=== PATIENT | female | born 1990 | race Caucasian/White ===

== ENCOUNTER 2019-08-21 11:32 | Emergency (ER) | payer MEDICAID, SELFPAY ==
[2019-08-21 11:32] VITALS: BP 107/66; PULSE 101; RESP 18; TEMP 36.6; O2SAT 100; BMI 22.6
--- NOTE | 2019-08-21 12:03 | ED.VIS.GEN ---
History of Present Illness Chief Complaint: Abscess Informant: Patient Narrative: Patient is a 29-year-old female who presents to the emergency department for abscess of the right upper extremity. This started approximately 1 week ago. She has never had these abscesses before in the past. She denies knowing any history of MRSA. She does have a history of IV drug abuse but she states that she has been clean over the past 3 months. She denies any fevers or chills. She has been feeling slightly nauseous but no episodes of vomiting. The swelling has been progressively getting larger. She has not tried anything for it. No loss of sensation in the hand or muscle weakness. She denies any chest pain or shortness of breath. No abdominal pain or back pain. No other new lesions that she has noticed. Past Medical History - Allergies and Home Meds Allergies/Adverse Reactions: Allergies No Known Allergies Allergy (Verified 08/21/19 11:36) Primary Care Physician: Jackeline Saul DO [Primary Care Provider] - 2 Days for wound check Prior records reviewed: Yes Past Medical History: - - Previous history of substance abuse, anxiety Smoking Status: Current every day smoker Alcohol: None Drugs: - - Currently denies, has been clean for 3 months. Review of Systems All systems negative except as indicated General: Denies: Chills, Fever, Sweats Eyes: Denies: Visual changes - bilaterally, Diplopia ENT: Denies: Rhinorrhea, Sore throat Cardiovascular: Denies: Chest pain, Palpitations Respiratory: Denies: Dyspnea, Cough, Dyspnea on exertion Gastrointestinal: Reports: Nausea. Denies: Abdominal pain, Vomiting, Diarrhea Musculoskeletal: Denies: Back pain, Extremity Pain Skin: Reports: Abscess. Denies: Rash, Wounds Neurological: Denies: Headache, Weakness, Numbness Physical Exam Vital Signs/Narrative: Vital Signs Temp Pulse Resp BP Pulse Ox 08/21/19 11:32 98 F 101 H 18 107/66 100 Inital Vital Signs reviewed: Yes General: Well nourished, Well developed, No Acute Distress Head: Normocephalic, Atraumatic Eyes: Perrl, EOMI ENT: Moist mucous membranes, No rhinorrhea Neck: Supple, Nontender Cardiovascular: Regular rate, Regular rhythm, No murmurs Respiratory: No distress, CTA bilaterally, Chest nontender Abdomen: Soft, Nontender, Nondistended, Normal bowel sounds Back: Nontender, Normal Inspection Extremities: Nontender, No edema Skin: Normal color, No rash, - - Abscess with swelling, erythema, tenderness and warmth just distal to right armpit. Otherwise neurovascularly intact distal. Neurological: Alert, Oriented x3, Cranial nerves II-XII grossly intact, Normal Strength, Normal Sensation Psychological: Normal affect, Normal Mood Diagnostic/Tx/Re-eval - Medical Decision Making Patient presents to the emerge department for abscess of the right underarm. She denies any systemic symptoms besides mild nausea. Upon arrival she is mildly tachycardic but otherwise no fever. She is nontoxic-appearing. No concern for NSTI at this time. After I&D the wound was dressed with gauze. Will place on antibiotics. She needs follow-up with her PCP for wound follow-up. If she develops any worsening swelling around the arm or develops any systemic symptoms she is to return to the emergency department. She understands and is agreeable this plan. Will discharge home in stable condition. Procedures Procedure(s): Procedure name: Abscess incision and drainage. Informed consent was obtained before procedure started. The appropriate timeout was taken. The area was prepped and draped in the usual sterile fashion. Area surrounding the abscess was cleaned with alcohol. The area was anesthetized using 5 cc 1% lidocaine with epinephrine. Using an 11 blade a small incision was made. A moderate amount of purulent drainage was obtained. Wound dressed. Patient tolerated the procedure well without any apparent complications. ED Disposition - Plan for ED Patient: Disposition: Home or Assisted Living Diagnosis: Abscess of arm, right Instructions: ED Abscess Incision And Drainage Prescriptions: Smz/Tmp Ds [Bactrim Ds] 2 tab PO BID 7 Days #28 tab Prescription Printed Cephalexin [Keflex] 500 mg PO TID 7 Days #21 cap Prescription Printed Referrals: Jackeline Saul DO [Primary Care Provider] - 2 Days for wound check
== END 2019-08-21 13:02 | disposition home or self-care (01) ==
PROVIDERS: Emergency Provider Emergency Medicine; PCP Family Medicine
DX: L02.413 Cutaneous abscess of right upper limb (principal); F41.9 Anxiety disorder, unspecified; F17.200 Nicotine dependence, unspecified, uncomplicated
CPT/HCPCS: 10060; 99282

== ENCOUNTER 2019-11-07 19:02 | Emergency (ER) | payer MEDICAID, SELFPAY ==
[2019-11-07 19:03] VITALS: BP 162/50; PULSE 85; RESP 16; TEMP 36.1; O2SAT 93; BMI 20.9
--- NOTE | 2019-11-07 20:04 | RAD_ITS ---
STUDY: X-RAY - LEFT HAND REASON FOR EXAM: Female, 29 years old. IV drug user, swollen near base of thumb and turning yellow. TECHNIQUE: 3 view(s) of the hand. COMPARISON: None. FINDINGS: Normal radiocarpal articulation. Normal distal radioulnar joint. Normal visualized carpal bones. Normal carpal articulations Normal carpometacarpal articulation of the thumb. Normal second through fifth carpometacarpal joints. Normal metacarpi. Normal metacarpophalangeal joint of the thumb. Normal interphalangeal joint of the thumb. Normal proximal and distal phalanges of the thumb. Normal metacarpophalangeal joints of the second through fifth fingers. Normal proximal and distal interphalangeal joints of the second through fifth fingers. Normal phalanges of the second through fifth fingers. There is soft tissue swelling adjacent to the first metacarpal. No foreign body is visualized. RAD/Hand Min 3 Views IMPRESSION: No foreign body identified. No acute osseous injury. Soft tissue swelling at the base of the thumb. Electronically Signed: Evelyn Baker MD at 21:54 EDT Tel , Service support ,
--- NOTE | 2019-11-07 20:25 | ED.DCSUM_ITS ---
History of Present Illness Chief Complaint: General Illness Informant: Patient Onset: Weeks - 1 Narrative: Surgical abscess left hand for the past week. States IV drug user restarted a few months ago. No fevers. No chills or sweats. No drainage. Denies any allergies. History of hepatitis C, states was told by several other eyes were little more yellow. No recent vomiting or diarrhea. No sick contacts. Denies abdominal pain. Prior similar symptoms: Yes Past Medical History - Allergies and Home Meds Allergies/Adverse Reactions: Allergies No Known Allergies Allergy (Verified 11/07/19 19:05) Primary Care Physician: Jackeline Saul DO [Primary Care Provider] - Past Medical History: - - Hepatitis C, IV drug abuse Smoking Status: Current every day smoker Review of Systems General: Denies: Chills, Fever, Sweats Eyes: Denies: Visual changes - bilaterally, Diplopia ENT: Denies: Rhinorrhea, Sore throat Cardiovascular: Denies: Chest pain, Palpitations Respiratory: Denies: Dyspnea, Cough, Dyspnea on exertion Gastrointestinal: Denies: Abdominal pain, Nausea, Vomiting, Diarrhea, Melena, Hematochezia Genitourinary: Denies: Dysuria, Hematuria, Frequency Musculoskeletal: Denies: Back pain, Extremity Pain Skin: Reports: Abscess. Denies: Rash, Wounds Neurological: Denies: Headache, Weakness, Numbness Physical Exam Vital Signs/Narrative: Vital Signs Temp Pulse Resp BP Pulse Ox 11/07/19 19:03 97.0 F L 85 16 162/50 H 93 Inital Vital Signs reviewed: Yes General: Well nourished, Well developed, No Acute Distress Head: Normocephalic, Atraumatic Eyes: Perrl, EOMI, Scleral icterus ENT: Moist mucous membranes, No rhinorrhea Neck: Supple, Nontender Cardiovascular: Regular rate, Regular rhythm, No murmurs Respiratory: No distress, CTA bilaterally, Chest nontender Abdomen: Soft, Nontender, Nondistended, Normal bowel sounds Back: Nontender, Normal Inspection Extremities: Nontender, No edema Skin: - - Left hand dorsal aspect, 2 and half centimeter area of erythema induration with a small wound with no active drainage there is no streaking. Mild tender to palpation. This in the region between the first web space. Neurological: Alert, Oriented x3, Cranial nerves II-XII grossly intact, Normal Strength, Normal Sensation Psychological: Normal affect, Normal Mood Diagnostic/Tx/Re-eval Clinical Impression(s) from Imaging Studies Hand X-Ray 11/07/19 20:04 IMPRESSION: No foreign body identified. No acute osseous injury. Soft tissue swelling at the base of the thumb. Electronically Signed: Evelyn Baker MD at 21:54 EDT Tel , Service support , Abnormal Lab Results 11/07/19 21:05 Total Bilirubin 5.20 H Direct Bilirubin 4.35 H AST 722 H ALT 1127 H Alkaline Phosphatase 444 H Total Protein 8.3 H Albumin 3.2 Globulin 5.1 H - Medical Decision Making Patient nontoxic, she declines attempt for incision and drainage. X-ray of hand obtained shows no radiopaque foreign bodies. Erythema was outlined, started on Keflex and Bactrim. With her scleral icterus history of hep C liver enzymes obtained which was elevated. He has no vomiting diarrhea or any abdominal pain. Likely hepatitis flare. She will follow-up with her PCP that follows her with this. She also states she has a rehab scheduled for tomorrow for her use. Discharge with outpatient follow-up, signs and symptom discussed return. All questions were answered. ED Disposition - Plan for ED Patient: Disposition: Home or Assisted Living Diagnosis: Hepatitis, Hx of hepatitis C, Abscess of hand excluding fingers and thumb Instructions: ED Abscess Antibiotic Treatment Only Prescriptions: Smz/Tmp Ds [Bactrim Ds] 1 tab PO BID #20 tab Transmission Status: Pending to [email or web address] Cephalexin [Keflex] 500 mg PO Q6 #40 cap Transmission Status: Pending to [email or web address] Referrals: Jackeline Saul DO [Primary Care Provider] - 3-5 Days
[2019-11-07] MEDS: Smz/Tmp Ds Tablet 1 TABLET PO (20:46)
[2019-11-07] MEDS: Cephalexin 250 MG Capsule 500 MG PO (20:46)
[2019-11-07 21:38] LABS: AST(SGOT) 722 U/L (15-37); Alanine Aminotransfer ALT/SGPT 1127 U/L (13-56); Albumin, Serum 3.2 g/dL (3.2-5.0); Alkaline Phosphatase 444 U/L (45-117); Bilirubin, Direct 4.35 mg/dL (0.00-0.30); Globulin 5.1 g/dL (2.2-4.2); Protein, Total 8.3 g/dL (6.4-8.2)
[2019-11-07 22:04] VITALS: RESP 16
== END 2019-11-07 22:20 | disposition home or self-care (01) ==
PROVIDERS: Emergency Provider Emergency Medicine; PCP Family Medicine
DX: K75.9 Inflammatory liver disease, unspecified (principal); L02.512 Cutaneous abscess of left hand; F17.200 Nicotine dependence, unspecified, uncomplicated; Z86.19 Personal history of other infectious and parasitic diseases
CPT/HCPCS: 73130; 80076; 99282

== ENCOUNTER 2021-12-26 12:44 | Outpatient (REF) | payer SELFPAY ==
[2021-12-26 12:45] VITALS: BP 115/71; PULSE 106; RESP 15; TEMP 36.6; O2SAT 95; BMI 23.8
--- NOTE | 2021-12-26 12:58 | EX.ED.DYSGE1 ---
HPI History of Present Illness Chief Complaint: Overdose Informant: patient and EMS Narrative Narrative: Presents by EMS from shelter. Currently inmate there for 2 days. Present obtain powder fentanyl for which she took. Other inmates are also here being evaluated for overdose. She has history of substance abuse. She is status post 1 mg of intranasal Narcan by EMS. Unclear of any was given at the shelter. Currently states she is nauseated. Patient has overdosed years ago. Prior similar symptoms: Yes PFSH PFSH Medical History (Updated 12/26/21 @ 14:[address] Deep Martino DO) Drug abuse Home Medications buprenorphine 8 mg-naloxone 2 mg sublingual film 1.5 ea SL DAILY 08/21/19 [History Last Taken Unknown] escitalopram oxalate 20 mg tablet 30 mg PO DAILY 08/21/19 [History Last Taken Unknown] trazodone 100 mg tablet 100 mg PO QHS 08/21/19 [History Last Taken Unknown] cephalexin 500 mg capsule 500 mg PO Q6 #40 caps 11/07/19 [Rx Last Taken Unknown] sulfamethoxazole 800 mg-trimethoprim 160 mg tablet 1 tab PO BID #20 tabs 11/07/19 [Rx Last Taken Unknown] Allergy/AdvReac Type Severity Reaction Status Date / Time No Known Allergies Allergy Verified 12/26/21 12:46 Surgical History no surgical history Social History Smoking Status: Current every day smoker tobacco type: cigarettes ROS ROS ED Constitutional Constitutional ED: Denies chills, fever(s) or sweats Eyes Eyes: Denies change in vision ENT ENT ED: Denies dysphagia or sore throat Cardiovascular Cardiovascular: Denies chest pain, leg edema, palpitations or racing heartbeat Respiratory/Chest Respiratory/Chest: Denies cough, dyspnea or dyspnea on exertion Gastrointestinal Gastrointestinal: Reports nausea; Denies abdominal pain, diarrhea or vomiting Genitourinary Genitourinary ED: Denies dysuria, hematuria or urinary frequency Musculoskeletal Musculoskeletal: Denies back pain, extremity pain or neck pain Integumentary Denies rash or wounds Neurologic Neurologic: Denies headache(s), paresthesias or weakness EXAM Physical Exam Const Vital Signs: 12/26/21 12:45 12/26/21 13:04 Temperature 97.8 F Temperature Source Temporal Pulse Rate 106 H Respiratory Rate 15 Blood Pressure 115/71 Blood Pressure Mean 85 Pulse Ox 95 Oxygen Delivery Method Room Air Room Air Positive well nourished and well developed General Appearance ED: well developed and NAD HEENT Reports moist mucous membranes normocephalic and atraumatic Eyes PERRL, EOMs intact bilaterally and conjunctivae normal Eyes Narrative: No current pinpoint pupils. General Eye ED: Yes normal appearance of both eyes Neck no lymphadenopathy and supple General: Negative for tenderness Chest Wall Chest: Negative for tenderness Resp normal respiratory effort and normal air movement Effort and Inspection: symmetric chest movement; Negative for respiratory distress Cardio regular rate, regular rhythm and no murmurs Peripheral Pulses: pulses 2+ throughout GI normal to inspection, nondistended, normoactive bowel sounds and non-tender Palpation: Negative for guarding or rebound tenderness present Back/Spine no CVA tenderness and no thoracic nor lumbar tenderness Extremity normal to inspection General Extremety ED: Negative for edema or tenderness General Extremity: Negative for edema Neuro oriented x3 and no sensory deficits noted Sensorium / Orientation: awake and alert Skin no rashes or lesions noted and no wounds MDM MDM MDM Narrative Medical decision making narrative: Patient nontoxic, alert and oriented to 3. currently nauseated. She admitted to fentanyl use. She is given oral Zofran she will be observed. Remained stable here tolerate oral fluids. She is discharged in police custody. Discharge Plan Admission Attending Provider: Deep Martino Primary Care Provider: Jackeline Saul Instructions Patient Instructions: ED Overdose, Opiate Discharge Orders/Prescriptions Prescriptions: No Action trazodone 100 MG tablet 100 mg PO QHS escitalopram oxalate 20 MG tablet 30 mg PO DAILY buprenorphine-naloxone 1 EACH film 1.5 ea SL DAILY sulfamethoxazole-trimethoprim 1 TABLET tablet 1 tab PO BID Qty: 20 0RF cephalexin 500 MG capsule 500 mg PO Q6 Qty: 40 0RF Referrals / Follow Up: Jackeline Saul DO [Primary Care Provider] - 1 Week Disposition Disposition (needs filled in before D/C Order can be placed): Home, Self Care
[2021-12-26] MEDS: Ondansetron ODT 4 MG Tablet PO (14:06)
== END 2021-12-26 14:45 ==
LOC: ED 12:44
PROVIDERS: PCP Family Medicine; Visit Provider Emergency Medicine
DX: T40.411A Poisoning by fentanyl or fentanyl analogs, accidental (unintentional), initial encounter (principal); F17.210 Nicotine dependence, cigarettes, uncomplicated; R11.0 Nausea

== ENCOUNTER 2023-01-16 14:37 | Observation (INO) | payer MEDICAID, SELFPAY ==
[2023-01-16 14:37] VITALS: BP 113/73; PULSE 83; RESP 18; TEMP 35.7; O2SAT 100; BMI 27.5
[2023-01-16 15:20] LABS: Amphetamine Urine VISTA POSITIVE (<1000 ng/mL); Barbiturate Urine VISTA NEGATIVE (< 200 ng/mL); Benzodiazepine Urine VISTA NEGATIVE (< 200 ng/mL); Cocaine Urine VISTA POSITIVE (< 300 ng/mL); Ecstacy Urine VISTA POSITIVE (< 500 ng/mL); Methadone Urine VISTA NEGATIVE (< 300 ng/mL); PCP Urine VISTA NEGATIVE (< 25 ng/mL); THC Urine VISTA NEGATIVE (< 50 ng/mL); Vista UDS pH Range 5
[2023-01-16 15:59] LABS: Absolute Lymphocyte Count 1.97 X10^3/uL (0.83-4.51); Absolute Neutrophil Count 6.7 X10^3/uL (2.0-7.7); Basophil# 0.05 X10^3/uL; Basophil% 0.5 % (0-1); Eosinophils% 3.1 % (0-5); Hematocrit 37.7 % (37-47); Hemoglobin 12.6 g/dL (12.0-15.0); Lymphocyte # 1.97 X10^3/ul (0.83-4.51); Lymphocyte % 20.6 % (19-41); Mean Corp Hgb Conc 33.4 g/dL (32-36); Mean Corpuscular Hgb 28.8 pg (27.0-32.0); Mean Corpuscular Volume 86.1 fL (81-99); Mean Platelet Vol. 10.4 fl (6.2-12.0); Monocyte# 0.51 X10^3/uL; Monocyte% 5.3 % (0-10); NRBC Flagged by Analyzer 0 % (0-5); Neutrophil # 6.67 X10^3/uL (2.7-7.7); Neutrophil % 70.1 % (47-70); Platelet Count 333 K/mm3 (150-450); RBC Distribution Width CV 12.3 % (11.6-14.6); RBC Distribution Width SD 38.5 fl (35.1-43.9); Red Blood Count 4.38 M/mm3 (4.2-5.4); White Blood Count 9.5 K/mm3 (4.4-11.0)
--- NOTE | 2023-01-16 16:02 | EDS_ITS ---
HPI History of Present Illness Chief Complaint: Substance Abuse Informant: patient Narrative Narrative: 32year-old female presenting to the emergency room requesting detox services. Patient states that she has mostly been using methamphetamines but yesterday smoked fentanyl. She states that she does not normally use fentanyl. She went to [facility] and because she tested positive for fentanyl they sent her to the emergency to get detox in the hospital. Patient states that she has had an off on again off again relationship with drugs including methamphetamines. She does not feel like she is going to have any withdrawal symptoms. She did a . She states she has not done any IV drugs for years. [facility] Medical History Drug abuse Home Medications buprenorphine 8 mg-naloxone 2 mg sublingual film 1.5 ea SL DAILY 08/21/19 [History Last Taken Unknown] escitalopram oxalate 20 mg tablet 30 mg PO DAILY 08/21/19 [History Last Taken Unknown] trazodone 100 mg tablet 100 mg PO QHS 08/21/19 [History Last Taken Unknown] cephalexin 500 mg capsule 500 mg PO Q6 #40 caps 11/07/19 [Rx Last Taken Unknown] sulfamethoxazole 800 mg-trimethoprim 160 mg tablet 1 tab PO BID #20 tabs 11/07/19 [Rx Last Taken Unknown] Allergy/AdvReac Type Severity Reaction Status Date / Time No Known Allergies Allergy Verified 01/16/23 14:37 Social History (Updated 01/16/23 @ 16:[address] Aric Yen DO) Smoking Status: Current every day smoker tobacco type: cigarettes substance use type: amphetamines, opiates and methamphetamine ROS ROS ED Constitutional Constitutional ED: Denies chills, fever(s) or weight loss Eyes Eyes: Denies change in vision or diplopia ENT ENT ED: Denies ear pain, rhinorrhea or sore throat Cardiovascular Cardiovascular: Denies chest pain, orthopnea, palpitations or racing heartbeat Respiratory/Chest Respiratory/Chest: Denies cough, dyspnea or orthopnea Gastrointestinal Gastrointestinal: Denies abdominal pain, diarrhea, nausea or vomiting Genitourinary Genitourinary ED: Denies dysuria, hematuria or urinary frequency Musculoskeletal Musculoskeletal: Denies arthralgias or myalgias Integumentary Denies abscess or rash Neurologic Neurologic: Denies headache(s) or weakness Psychiatric Psychiatric: Denies anxiety, depression, suicidal ideation or suicidal thoughts Endocrine Endocrinology: Denies polydipsia, polyphagia or polyuria Allergic/Immunologic Allergic/Immunologic ED: Denies mouth swelling, tongue swelling or urticaria EXAM Physical Exam Const Vital Signs: 01/16/23 14:37 Temperature 96.3 F L Temperature Source Temporal Pulse Rate 83 Respiratory Rate 18 Blood Pressure 113/73 Blood Pressure Mean 86 Pulse Ox 100 Oxygen Delivery Method Room Air Positive well nourished and well developed General Appearance ED: well developed HEENT Reports normocephalic, head/scalp atraumatic and moist mucous membranes Eyes PERRL and EOMs intact bilaterally Neck no lymphadenopathy, supple and no JVD Resp normal respiratory effort and clear to auscultation bilaterally Cardio regular rate, regular rhythm and no murmurs GI normal to inspection, nondistended, normoactive bowel sounds and non-tender Palpation: soft Back/Spine no CVA tenderness and normal ROM Extremity normal to inspection General Extremety ED: Negative for edema General Extremity: Negative for edema Neuro oriented x3 and CN's II-XII intact bilaterally Sensorium / Orientation: alert Motor Exam: strength 5/5 throughout Psych mental status grossly normal Mood & Affect: Negative for depressed or tearful Skin no rashes or lesions noted and no wounds MDM MDM MDM Narrative Medical decision making narrative: Urine toxicology positive for amphetamines cocaine and MDMA. White count 9.5 hemoglobin 12.6. History & Record Review Discussion w/independent historian: Patient Lab Data Attestation: I reviewed the patient's lab results. Labs: Laboratory Results - last 24 hr 01/16/23 01/16/23 15:02 15:34 WBC 9.5 RBC 4.38 Hgb 12.6 Hct 37.7 MCV 86.1 MCH 28.8 MCHC 33.4 RDW Std Deviation 38.5 RDW Coeff of Rachel 12.3 Plt Count 333 MPV 10.4 Immature Gran % (Auto) 0.400 Neut % (Auto) 70.1 H Lymph % (Auto) 20.6 [place] % (Auto) 5.3 Eos % (Auto) 3.1 Baso % (Auto) 0.5 Absolute Neuts (auto) 6.7 Absolute Lymphs (auto) 1.97 Nucleated RBC % 0 Urine Opiates Screen NEGATIVE Urine Methadone Screen NEGATIVE Ur Barbiturates Screen NEGATIVE Ur Phencyclidine Scrn NEGATIVE Ur Amphetamines Screen POSITIVE H MDMA (Ecstasy) Screen POSITIVE H U Benzodiazepines Scrn NEGATIVE Urine Cocaine Screen POSITIVE H U Cannabinoids Screen NEGATIVE Ur Drug Screen Comment Management Discussion w/another healthcare provider: Hospitalist Discharge Plan Triage Chief Complaint: Substance Abuse ED Provider: Aric Yen Dx/Rx/DC Orders Prescriptions: No Action trazodone 100 MG tablet 100 mg PO QHS escitalopram oxalate 20 MG tablet 30 mg PO DAILY buprenorphine-naloxone 1 EACH film 1.5 ea SL DAILY sulfamethoxazole-trimethoprim 1 TABLET tablet 1 tab PO BID Qty: 20 0RF cephalexin 500 MG capsule 500 mg PO Q6 Qty: 40 0RF Primary Care Provider: Jackeline Saul Referrals: Jackeline Saul DO [Primary Care Provider] -
[2023-01-16 16:07] LABS: Alcohol, Blood (Medical)-Serum < 3.0 mg/dL
[2023-01-16 16:13] LABS: ALB/GLOB Ratio 1.1 RATIO (0.9-2.4); AST(SGOT) 8 U/L (15-37); Alanine Aminotransfer ALT/SGPT 17 U/L (13-56); Albumin, Serum 3.6 g/dL (3.2-5.0); Alkaline Phosphatase 89 U/L (45-117); Anion Gap 4 (5-15); BUN 9 mg/dL (7-18); BUN/Creat Ratio 14.6 RATIO (10-20); Calcium,Total 8.8 mg/dL (8.5-10.1); Chloride 107 mmol/L (98-107); Creatinine, Serum 0.62 mg/dL (0.55-1.02); EST Glomerular Filtration Rate 119 mL/min (>60); Est Glom Filt Rate - Afr Amer 144 mL/min (>60); Estimated Creatinine Clearance 121.95 ml/min; Globulin 3.4 g/dL (2.2-4.2); Glucose 96 mg/dL (74-106); Potassium 3.5 mmol/L (3.5-5.1); Sodium Level 138 mmol/L (136-145)
[2023-01-16 16:20] LABS: Internal QC Validated? YES +Cl - CLEAR BKGD; Pregnancy, Serum, hCG Quali. NEGATIVE Negative
--- NOTE | 2023-01-16 16:52 | PCM.HP.STD ---
HPI - General General Date of Admission: 01/16/23 Date of Service: 01/16/23 Chief Complaint: Fentanyl use HPI Narrative KANIKA CHRISTOPHER, is a 32-year-old female history of polysubstance abuse and depression presented to [facility] 01/16/2023 to being positive for fentanyl at [facility]. Per patient she has history of daily amphetamine and fentanyl use but has been sober for months and has been in sober living. Yesterday she relapsed and used fentanyl and amphetamines and had drug screen at [facility] which was positive for fentanyl and was told to come to the ED for admission for detox. In the ED she was positive for amphetamines, MDMA, and cocaine. She endorses that prior to the use yesterday she has not used recently and she is having no withdrawal symptoms and does not feel she will withdrawal moving forward, agreeable to admission and monitoring and can likely DC back to sober living if patient does not develop any withdrawal symptoms. [facility] Medical History Drug abuse Home Medications buprenorphine 8 mg-naloxone 2 mg sublingual film 1.5 ea SL DAILY 08/21/19 [History Last Taken Unknown] escitalopram oxalate 20 mg tablet 30 mg PO DAILY 08/21/19 [History Last Taken Unknown] trazodone 100 mg tablet 100 mg PO QHS 08/21/19 [History Last Taken Unknown] cephalexin 500 mg capsule 500 mg PO Q6 #40 caps 11/07/19 [Rx Last Taken Unknown] sulfamethoxazole 800 mg-trimethoprim 160 mg tablet 1 tab PO BID #20 tabs 11/07/19 [Rx Last Taken Unknown] Allergy/AdvReac Type Severity Reaction Status Date / Time No Known Allergies Allergy Verified 01/16/23 14:37 Social History (Updated 01/16/23 @ 16:[address] Aric Yen DO) Smoking Status: Current every day smoker tobacco type: cigarettes substance use type: amphetamines, opiates and methamphetamine ROS ROS Narrative General: Denies fever/chills HENT: Denies headache, slight stuffy nose, denies sore throat EYES: Denies changes in vision Resp: Denies cough, denies shortness of breath Cardiac: Denies chest pain GI: Denies abdominal pain, denies changes in bowel, denies nausea/vomiting : Denies changes in urination Extremity: Denies swelling MSK: Denies weakness Neuro: Denies any numbness/tingling Heme: Denies any bleeding or bruising Skin: Denies rashes Psychiatric: No complaints voiced Vital Signs Vital Signs Vital Signs: 01/16/23 14:37 Temperature 96.3 F L Temperature Source Temporal Pulse Rate 83 Respiratory Rate 18 Blood Pressure 113/73 Blood Pressure Mean 86 Pulse Ox 100 Oxygen Delivery Method Room Air Weight Weight: 77.4 kg Body Mass Index (BMI) 27.5 Physical Exam Narrative General: Alert, oriented, no apparent distress HEENT: Atraumatic, normocephalic Eyes: Anicteric, normal conjunctiva, extraocular movements grossly intact Neck: Supple Respiratory: Clear to auscultation bilaterally, normal respiratory effort Cardiovascular: Regular rate and rhythm GI: Soft, nontender, nondistended Extremities: No edema Musculoskeletal: Moving all extremities Neuro: No overt focal neurological deficits Skin: No rashes appreciated Psych: Cooperative Results Lab / Micro Data 01/16/23 15:34 01/16/23 15:34 Labs: Laboratory Results - last 24 hr 01/16/23 15:02: Urine Opiates Screen NEGATIVE, Urine Methadone Screen NEGATIVE, Ur Barbiturates Screen NEGATIVE, Ur Phencyclidine Scrn NEGATIVE, Ur Amphetamines Screen POSITIVE H, MDMA (Ecstasy) Screen POSITIVE H, U Benzodiazepines Scrn NEGATIVE, Urine Cocaine Screen POSITIVE H, U Cannabinoids Screen NEGATIVE, Ur Drug Screen Comment 01/16/23 15:34: WBC 9.5, RBC 4.38, Hgb 12.6, Hct 37.7, MCV 86.1, MCH 28.8, MCHC 33.4, RDW Std Deviation 38.5, RDW Coeff of Rachel 12.3, Plt Count 333, MPV 10.4, Immature Gran % (Auto) 0.400, Neut % (Auto) 70.1 H, Lymph % (Auto) 20.6, [place] % (Auto) 5.3, Eos % (Auto) 3.1, Baso % (Auto) 0.5, Absolute Neuts (auto) 6.7, Absolute Lymphs (auto) 1.97, Nucleated RBC % 0, Sodium 138, Potassium 3.5, Chloride 107, Carbon Dioxide 27.0, Anion Gap 4 L, BUN 9, Creatinine 0.62, Estim Creat Clear Calc 121.95, Est GFR (MDRD) Af Amer 144, Est GFR (MDRD) Non-Af 119, BUN/Creatinine Ratio 14.6, Glucose 96, Calcium 8.8, Total Bilirubin 0.30, AST 8 L, ALT 17, Alkaline Phosphatase 89, Total Protein 7.0, Albumin 3.6, Globulin 3.4, Albumin/Globulin Ratio 1.1, Serum , Qual NEGATIVE, Ethyl Alcohol < 3.0 Assessment & Plan Assessment/Plan (1) Polysubstance use disorder: (2) Opioid use disorder: (3) Amphetamine abuse, episodic: (4) Tobacco use: PLAN: Plan # Opioid use -Patient endorses only using x 1 and that prior to that she had not used for months, will monitor with COWS, suspect she will not need to start Subutex taper however unclear how forthcoming patient is being - As needed Tylenol, ibuprofen, bowel regimen, gabapentin, Bentyl, Vistaril, methocarbamol, clonidine - As needed trazodone nightly - As needed antiemetics -Can consider back to sober living if [facility] agreeable and patient with no withdrawal symptoms tomorrow #Polysubstance abuse -In the ED she was positive for amphetamines, MDMA, and cocaine. -Advise cessation -Will be seen by [facility] coordinator -ETOH negative in ED #Tobacco use -Advise cessation -Patient agreeable to nicotine replacement #DVT ppx: Low risk, ambulatory Oanh Muñoz MD Charges/Coding Visit Charges Inpatient E&M: 87849 Init Hosp L1
[2023-01-16 19:25] VITALS: BMI 27.6
[2023-01-16 19:35] VITALS: BP 104/70; PULSE 76; RESP 18; TEMP 36.6; O2SAT 100
[2023-01-16] MEDS: Ibuprofen 600 MG Tablet PO (20:11)
[2023-01-17] VITALS: BP 95/72; PULSE 85; RESP 16; TEMP 36.6; O2SAT 100
[2023-01-17 04:00] VITALS: BP 97/57; PULSE 81; RESP 18; TEMP 36.6; O2SAT 99
[2023-01-17 08:00] VITALS: BP 104/64; PULSE 82; RESP 16; TEMP 36.7; O2SAT 98
[2023-01-17 12:00] VITALS: BP 111/64; PULSE 78; RESP 18; TEMP 36.2; O2SAT 98
--- NOTE | 2023-01-17 12:18 | DS.PCM_ITS ---
Providers Date of Admission: 01/16/23 Date of Discharge: 01/17/23 Primary Care Physician: Dr. Jackeline Saul, DO Reason For Visit: FENTANAYL USE Diagnosis Discharge Diagnosis (1) Polysubstance use disorder: Status: Acute Code(s): F19.90 - Other psychoactive substance use, unspecified, uncomplicated (2) Opioid use disorder: Status: Acute Code(s): F11.90 - Opioid use, unspecified, uncomplicated (3) Amphetamine abuse, episodic: Status: Acute Code(s): F15.10 - Other stimulant abuse, uncomplicated (4) Tobacco use: Status: Acute Code(s): Z72.0 - Tobacco use Medications at Discharge Home Medications NK 01/17/23 Hospital Course Operations None Procedures None Summary of Care Provided Minutes Spent on Discharge: 15 Hospital Course: Ms. Herbert is a 32-year-old white female who presented to the emergency department on 01/16/2023 from [facility] per their instruction. She has a history of daily amphetamine and fentanyl use but has been sober for months and had been in sober living. She relapsed on the day prior to presentation using fentanyl and amphetamines and had a drug screen at [facility] which was positive for fentanyl so she was instructed to come to the emergency department for possible detox. Toxicology screen the emergency department was positive for MDMA, cocaine, and amphetamines. She endorsed that she used yesterday but stated she only used 1 time and did not feel that she would have any withdrawal symptoms. She was agreeable for admission and monitoring. She required no supportive medication for any withdrawal symptoms and was not having any signs of withdrawal during her hospital course. I talked to the [facility] liaison and she felt that as long as we felt she was stable for discharge she can go back to [facility]. She was discharged in stable condition on 01/17/2023. Discharge diagnoses: Opiate abuse Polysubstance abuse Tobacco abuse Physical Exam Narrative Patient states she is feeling fine. No signs of withdrawal is adamant that she only used once and is anxious to go back to reinitiate her rehab. Const alert, oriented x3, no apparent distress, average body habitus, no limitations, healthy appearing and well nourished Constitutional Narrative: Middle-aged, white female, standing up in the room watching television, appears comfortable and nontoxic, no signs of withdrawal General Appearance: cooperative, comfortable, well kempt and well developed Exam Limitations: no limitations HEENT normocephalic and head/scalp atraumatic Resp normal respiratory effort, no retractions, no use of accessory muscles and clear to auscultation bilaterally Auscultation: rales, rhonchi and wheezes Cardio regular rate, regular rhythm, S1 normal heart sound, S2 normal heart sound, no m urmurs, no rub, no gallops and no clicks GI normal to inspection, nondistended, normoactive bowel sounds, soft to palpation and non-tender Extremity no clubbing, cyanosis or edema Extremity Narrative: Pedal pulses are 2+, radial pulses are 2+ Neuro oriented x3, moves all extremities and no focal motor deficits Speech: speech normal Psych affect normal Psych Narrative: Interacts appropriately, eye contact is good Weight / BMI Weight Weight: 77.7 kg Body Mass Index (BMI) 27.6 ABG / Lab / Microbiology Data 01/16/23 15:34 01/16/23 15:34 Laboratory: Laboratory Results - last 24 hr 01/16/23 15:02: Urine Opiates Screen NEGATIVE, Urine Methadone Screen NEGATIVE, Ur Barbiturates Screen NEGATIVE, Ur Phencyclidine Scrn NEGATIVE, Ur Amphetamines Screen POSITIVE H, MDMA (Ecstasy) Screen POSITIVE H, U Benzodiazepines Scrn NEGATIVE, Urine Cocaine Screen POSITIVE H, U Cannabinoids Screen NEGATIVE, Ur Drug Screen Comment 01/16/23 15:34: WBC 9.5, RBC 4.38, Hgb 12.6, Hct 37.7, MCV 86.1, MCH 28.8, MCHC 33.4, RDW Std Deviation 38.5, RDW Coeff of Rachel 12.3, Plt Count 333, MPV 10.4, Immature Gran % (Auto) 0.400, Neut % (Auto) 70.1 H, Lymph % (Auto) 20.6, [place] % (Auto) 5.3, Eos % (Auto) 3.1, Baso % (Auto) 0.5, Absolute Neuts (auto) 6.7, Absolute Lymphs (auto) 1.97, Nucleated RBC % 0, Sodium 138, Potassium 3.5, Chloride 107, Carbon Dioxide 27.0, Anion Gap 4 L, BUN 9, Creatinine 0.62, Estim Creat Clear Calc 121.95, Est GFR (MDRD) Af Amer 144, Est GFR (MDRD) Non-Af 119, BUN/Creatinine Ratio 14.6, Glucose 96, Calcium 8.8, Total Bilirubin 0.30, AST 8 L, ALT 17, Alkaline Phosphatase 89, Total Protein 7.0, Albumin 3.6, Globulin 3.4, Albumin/Globulin Ratio 1.1, Serum , Qual NEGATIVE, Ethyl Alcohol < 3.0 D/C Instructions Discharge Diet: No restrictions Meaningful Use Info Meaningful Use Diagnoses (Choose all that apply): None applicable Discharge Plan Admission Admit Date/Time: 01/16/23 16:53 Primary Reason for Your Visit: Fentanyl use Attending Provider: Preeti Davis Primary Care Provider: Jackeline Saul Consulting Providers: Oanh Muñoz Discharge Orders/Prescriptions Prescriptions: Continued NK Referrals / Follow Up: Jackeline Salu DO [Primary Care Provider] - See Referral Note (As needed) Disposition Disposition (needs filled in before D/C Order can be placed): Inpatient Rehab Unit/Facility Charges/Coding Visit Charges Inpatient E&M: 34150 Disch Hosp
[2023-01-17 12:45] VITALS: BP 113/62; PULSE 79; RESP 16; TEMP 36.3; O2SAT 99
== END 2023-01-17 12:57 | disposition home or self-care (01) ==
LOC: ED 16:05 → MS3 01-17 06:53
PROVIDERS: Admitting Provider Internal Medicine; Emergency Provider Emergency Medicine; PCP Family Medicine; Visit Provider Internal Medicine
DX: F11.10 Opioid abuse, uncomplicated (principal); F15.10 Other stimulant abuse, uncomplicated; F17.210 Nicotine dependence, cigarettes, uncomplicated; Z79.899 Other long term (current) drug therapy
CPT/HCPCS: 36415; 80053; 80307; 82077; 84703; 85025; 99221; 99283; G0378